=== PATIENT | male | born 1945 | race Caucasian/White ===

== ENCOUNTER 2017-11-09 12:51 | Inpatient (IN) | payer OTHER ==
[~2017-11-09] VITALS: Ht 177.8 cm; Wt 119.8 kg
[~2017-11-09 12:51] MED LIST: AMLO1CAP PO; AMLO2.5T2 PO; ATOR40TA68 PO; BENA40TA2 PO; FURO40TA5 PO; FURO80TA86 PO; GLIP10TA11 PO; GLIP10TA74 PO; HYDR-1115 PO; HYDR-4039 PO; LINA5TAB2 PO; LIP40 PO; METO-442 PO; TAMS0.4C96 PO
[2017-11-09 13:03] VITALS: BP_SYST 210
[2017-11-09] MEDS ORDERED: KETOROLAC TROMETHAMINE 30 MG VIAL IVP ONE (13:30)
[2017-11-09] MEDS ORDERED: DEXAMETHASONE SOD PHOSPHATE 10 MG/ML VIAL IVP ONE (13:45)
[2017-11-09] MEDS ORDERED: cloNIDine HCL 0.1 MG TABLET PO ONE ×2 (14:00→15:45)
[2017-11-09 14:21] LABS: BASOPHILS % (AUTO) 0.5 % (0.0-2.0); EOSINOPHILS # (AUTO) 0.3 K/uL (0.0-0.4); EOSINOPHILS % (AUTO) 3.4 % (0.0-4.0); HEMATOCRIT 43.3 % (36-54); HEMOGLOBIN 14.3 g/dL (14.0-18.0); LYMPHOCYTES # (AUTO) 1.4 K/uL (1.0-5.5); MEAN CORPUSCULAR HEMOGLOBIN 30 pg (27-31); MEAN CORPUSCULAR HGB CONC 33 % (32-36); MEAN CORPUSCULAR VOLUME 90 fL (79.0-98.0); MONOCYTES # (AUTO) 0.6 K/uL (0.0-1.0); MONOCYTES % (AUTO) 8.1 % (1.7-9.3); NEUTROPHILS # (AUTO) 5.7 K/uL (1.8-7.7); PLATELET COUNT (AUTO) 292 K/uL (130-430); RED BLOOD CELL COUNT(AUTO) 4.79 MIL/uL (4.2-6.2); RED CELL DISTRIBUTION WIDTH 14.8 % (9.0-15.0)
[2017-11-09] MEDS ORDERED: cloNIDine HCL 0.2 MG TABLET ONE (14:31)
[2017-11-09 14:35] LABS: ALANINE AMINOTRANSFERASE 16 U/L (12-78); ALBUMIN 2.8 g/dL (3.4-4.8); ANION GAP 9 (5-15); ASPARTATE AMINOTRANSFERASE 13 U/L (10-37); CALCIUM 9.2 mg/dL (8.4-11.0); CHLORIDE 108 mmol/L (98-107); CREATININE 2.04 mg/dL (0.55-1.30); GLUCOSE 207 mg/dL (70-99); LIPASE 335 U/L (73-393); POTASSIUM 3.9 mmol/L (3.5-5.1); SODIUM SERUM 141 mmol/L (136-145); TOTAL BILIRUBIN 0.4 mg/dL (0.0-1.0); UREA NITROGEN, BLOOD 46 mg/dL (8-21); URIC ACID 10.1 mg/dL (2.4-7.0)
[2017-11-09 14:43] LABS: BILIRUBIN,URINE NEGATIVE (NEGATIVE); BLOOD, URINE NEGATIVE (NEGATIVE); CLARITY/URINE CLEAR (CLEAR); COLOR,URINE YELLOW (YELLOW); GLUCOSE,URINE NEGATIVE (NEGATIVE); KETONES,URINE NEGATIVE (NEGATIVE); LEUKOCYTE ESTERASE ,URINE NEGATIVE (NEGATIVE); NITRITE, URINE NEGATIVE (NEGATIVE); PH,URINE 5.5 (5.0-8.0); PROTEIN URINE 3+ (NEGATIVE); UROBILINOGEN,URINE 0.2 (0.2-1.0)
[2017-11-09 15:21] LABS: BACTERIA,URINE RARE /HPF (None Seen); RBC,URINE 0-3 /HPF (0-3)
[2017-11-09] MEDS ORDERED: FUROSEMIDE 40 MG/4 ML VIAL IVP ONE (15:30)
[2017-11-09 15:39] LABS: ERYTHROCYTE SEDIMENTATION RATE 66 MM/HR (0-15)
[2017-11-09] MEDS ORDERED: CLON1PAT9 TD (15:39)
[2017-11-09] MEDS ORDERED: TOPXL100 PO (15:39)
[2017-11-09] MEDS ORDERED: VALS320T10 PO (15:39)
[2017-11-09] MEDS ORDERED: VITD2000 PO (15:39)
[2017-11-09] MEDS ORDERED: GABA-529 PO (15:39)
[2017-11-09] MEDS ORDERED: ALBU8.5H8 INH (15:58)
[2017-11-09] MEDS ORDERED: ASPI-1063 PO (15:58)
[2017-11-09] MEDS ORDERED: ACET325T53 PO (15:58)
[2017-11-09] MEDS ORDERED: GLUC100017 PO (15:58)
[2017-11-09 16:02] VITALS: BP_SYST 202
[2017-11-09 16:15] VITALS: BP_SYST 191
[2017-11-09 20:00] VITALS: BP_SYST 180
[2017-11-09] MEDS: amLODIPine BESYLATE 10 MG TABLET PO SCH (20:31)
[2017-11-09] MEDS: FUROSEMIDE 40 MG/4 ML VIAL IVP SCH (20:32)
[2017-11-09 22:30] VITALS: BP_SYST 187
[2017-11-09] MEDS ORDERED: ACETAMINOPHEN 325 MG TABLET PO SCH (23:30)
[2017-11-09] MEDS ORDERED: ALBUTEROL MDI INHALATION 8 GM INH INH PRN (23:30)
[2017-11-09] MEDS: hydrALAZINE HCL 20 MG/ML VIAL IVP PRN (23:37)
[2017-11-10] VITALS (8 sets, daily range): BP systolic 147–184
[2017-11-10] MEDS ORDERED: LEVOFLOXACIN 500 MG/D5W 100 ML IV SCH
[2017-11-10] MEDS ORDERED: LEVOFLOXACIN 250 MG/D5W 50 ML IV ONE (00:13)
[2017-11-10] MEDS ORDERED: LEVOFLOXACIN 500 MG/D5W 100 ML IV ONE (00:44)
[2017-11-10 07:02] LABS: BASOPHILS # (AUTO) 0.1 K/uL (0.0-0.2); BASOPHILS % (AUTO) 1.7 % (0.0-2.0); EOSINOPHILS % (AUTO) 0.1 % (0.0-4.0); HEMATOCRIT 41.3 % (36-54); HEMOGLOBIN 13.5 g/dL (14.0-18.0); LYMPHOCYTES # (AUTO) 0.6 K/uL (1.0-5.5); LYMPHOCYTES % (AUTO) 10.3 % (20.5-51.5); MEAN CORPUSCULAR HEMOGLOBIN 30 pg (27-31); MEAN CORPUSCULAR HGB CONC 33 % (32-36); MEAN CORPUSCULAR VOLUME 91 fL (79.0-98.0); MONOCYTES # (AUTO) 0.1 K/uL (0.0-1.0); MONOCYTES % (AUTO) 1.5 % (1.7-9.3); NEUTROPHILS # (AUTO) 5.2 K/uL (1.8-7.7); NEUTROPHILS % (AUTO) 86.4 % (40.0-70.0); PLATELET COUNT (AUTO) 287 K/uL (130-430); RED BLOOD CELL COUNT(AUTO) 4.54 MIL/uL (4.2-6.2); RED CELL DISTRIBUTION WIDTH 14.5 % (9.0-15.0)
[2017-11-10 07:08] LABS: ALANINE AMINOTRANSFERASE 13 U/L (12-78); ALBUMIN 2.3 g/dL (3.4-4.8); ANION GAP 9 (5-15); ASPARTATE AMINOTRANSFERASE 12 U/L (10-37); CALCIUM 8.9 mg/dL (8.4-11.0); CHLORIDE 105 mmol/L (98-107); CREATININE 2.19 mg/dL (0.55-1.30); GLUCOSE 282 mg/dL (70-99); PHOSPHORUS 3.4 mg/dL (2.7-4.5); POTASSIUM 4.3 mmol/L (3.5-5.1); SODIUM SERUM 137 mmol/L (136-145); TOTAL BILIRUBIN 0.5 mg/dL (0.0-1.0); UREA NITROGEN, BLOOD 53 mg/dL (8-21)
[2017-11-10] MEDS ORDERED: IPRATROPIUM BROM 0.5 MG/2.5 ML VIAL.NEB (ATROVENT) INH PRN (07:30)
[2017-11-10] MEDS ORDERED: ALBUTEROL SULFATE 0.083% 2.5 MG/3 ML VIAL.NEB INH PRN (07:30)
[2017-11-10] MEDS: FUROSEMIDE 40 MG/4 ML VIAL IVP SCH ×2 (08:26→20:24)
[2017-11-10] MEDS: CHOLECALCIFEROL (VITAMIN D3) 2,000 UNIT TABLET PO SCH (08:26)
[2017-11-10] MEDS: TAMSULOSIN HCL 0.4 MG CAP PO SCH (08:26)
[2017-11-10] MEDS: amLODIPine BESYLATE 10 MG TABLET PO SCH (08:27)
[2017-11-10] MEDS: VALSARTAN 160 MG TABLET (DIOVAN) PO SCH (08:28)
[2017-11-10] MEDS: hydrALAZINE HCL 25 MG TABLET PO SCH ×2 (08:28→20:25)
[2017-11-10] MEDS: METOPROLOL SUCCINATE 50 MG TAB.SR.24H (TOPROL XL) PO SCH (08:29)
[2017-11-10] MEDS: GABAPENTIN 100 MG CAPSULE PO SCH (08:29)
[2017-11-10] MEDS ORDERED: DEXTROSE 50% JECT 50 ML DISP.SYRIN IVP PRN (08:30)
[2017-11-10] MEDS: hydrALAZINE HCL 20 MG/ML VIAL IVP PRN (11:19)
[2017-11-10] MEDS: INSULIN REGULAR, HUMAN 100 UNITS/ML, 10 ML VIAL (novoLIN R) SUBCUT PRN ×3 (11:49→20:28)
[2017-11-10] MEDS: ASPIRIN 81 MG TABLET(ECOTRIN) PO SCH (20:25)
[2017-11-10] MEDS: ATORVASTATIN 20 MG TABLET PO SCH (20:25)
[2017-11-10] MEDS: LEVOFLOXACIN 250 MG/D5W 50 ML IV SCH (23:35)
[2017-11-11] VITALS (8 sets, daily range): BP systolic 118–191
[2017-11-11] MEDS: INSULIN REGULAR, HUMAN 100 UNITS/ML, 10 ML VIAL (novoLIN R) SUBCUT PRN ×4 (06:03→22:13)
[2017-11-11 06:57] LABS: BASOPHILS % (AUTO) 0.3 % (0.0-2.0); HEMOGLOBIN 12.8 g/dL (14.0-18.0); LYMPHOCYTES # (AUTO) 1.4 K/uL (1.0-5.5); LYMPHOCYTES % (AUTO) 13.1 % (20.5-51.5); MEAN CORPUSCULAR HEMOGLOBIN 29 pg (27-31); MEAN CORPUSCULAR HGB CONC 33 % (32-36); MEAN CORPUSCULAR VOLUME 90 fL (79.0-98.0); MONOCYTES # (AUTO) 0.6 K/uL (0.0-1.0); MONOCYTES % (AUTO) 5.5 % (1.7-9.3); NEUTROPHILS # (AUTO) 8.8 K/uL (1.8-7.7); NEUTROPHILS % (AUTO) 81.1 % (40.0-70.0); PLATELET COUNT (AUTO) 313 K/uL (130-430); RED BLOOD CELL COUNT(AUTO) 4.36 MIL/uL (4.2-6.2); RED CELL DISTRIBUTION WIDTH 14.3 % (9.0-15.0); WHITE BLOOD COUNT (AUTO) 10.8 K/uL (4.8-10.8)
[2017-11-11 07:05] LABS: ALANINE AMINOTRANSFERASE 13 U/L (12-78); ALBUMIN 2.4 g/dL (3.4-4.8); ANION GAP 9 (5-15); ASPARTATE AMINOTRANSFERASE 14 U/L (10-37); CALCIUM 8.6 mg/dL (8.4-11.0); CHLORIDE 103 mmol/L (98-107); CREATININE 2.53 mg/dL (0.55-1.30); GLUCOSE 173 mg/dL (70-99); POTASSIUM 4.1 mmol/L (3.5-5.1); SODIUM SERUM 137 mmol/L (136-145); TOTAL BILIRUBIN 0.3 mg/dL (0.0-1.0); UREA NITROGEN, BLOOD 71 mg/dL (8-21)
[2017-11-11] MEDS: hydrALAZINE HCL 25 MG TABLET PO SCH ×2 (08:54→22:05)
[2017-11-11] MEDS: TAMSULOSIN HCL 0.4 MG CAP PO SCH (08:54)
[2017-11-11] MEDS: GABAPENTIN 100 MG CAPSULE PO SCH (08:55)
[2017-11-11] MEDS: METOPROLOL SUCCINATE 50 MG TAB.SR.24H (TOPROL XL) PO SCH (08:55)
[2017-11-11] MEDS: amLODIPine BESYLATE 10 MG TABLET PO SCH (08:55)
[2017-11-11] MEDS: VALSARTAN 160 MG TABLET (DIOVAN) PO SCH (08:56)
[2017-11-11] MEDS: CHOLECALCIFEROL (VITAMIN D3) 2,000 UNIT TABLET PO SCH (08:56)
[2017-11-11] MEDS: FUROSEMIDE 40 MG/4 ML VIAL IVP SCH ×2 (08:57→22:06)
[2017-11-11] MEDS: hydrALAZINE HCL 20 MG/ML VIAL IVP PRN (11:50)
[2017-11-11] MEDS: ENALAPRILAT DIHYDRATE 1.25 MG/ML VIAL IVP PRN ×2 (13:37→23:46)
[2017-11-11] MEDS: ATORVASTATIN 20 MG TABLET PO SCH (22:04)
[2017-11-11] MEDS: ASPIRIN 81 MG TABLET(ECOTRIN) PO SCH (22:05)
[2017-11-12] VITALS (8 sets, daily range): BP systolic 141–189
[2017-11-12] MEDS: LEVOFLOXACIN 250 MG/D5W 50 ML IV SCH ×2 (00:48→23:37)
[2017-11-12 06:41] LABS: ANION GAP 9 (5-15); CALCIUM 8.7 mg/dL (8.4-11.0); CHLORIDE 105 mmol/L (98-107); CREATININE 2.42 mg/dL (0.55-1.30); GLUCOSE 124 mg/dL (70-99); POTASSIUM 3.9 mmol/L (3.5-5.1); SODIUM SERUM 139 mmol/L (136-145); UREA NITROGEN, BLOOD 73 mg/dL (8-21)
[2017-11-12] MEDS: GABAPENTIN 100 MG CAPSULE PO SCH (08:55)
[2017-11-12] MEDS: CHOLECALCIFEROL (VITAMIN D3) 2,000 UNIT TABLET PO SCH (08:56)
[2017-11-12] MEDS: TAMSULOSIN HCL 0.4 MG CAP PO SCH (08:56)
[2017-11-12] MEDS: amLODIPine BESYLATE 10 MG TABLET PO SCH (08:57)
[2017-11-12] MEDS: VALSARTAN 160 MG TABLET (DIOVAN) PO SCH (08:57)
[2017-11-12] MEDS: hydrALAZINE HCL 25 MG TABLET PO SCH ×2 (08:58→21:13)
[2017-11-12] MEDS: FUROSEMIDE 40 MG/4 ML VIAL IVP SCH ×2 (08:58→21:14)
[2017-11-12] MEDS: METOPROLOL SUCCINATE 50 MG TAB.SR.24H (TOPROL XL) PO SCH (08:59)
[2017-11-12] MEDS: ENALAPRILAT DIHYDRATE 1.25 MG/ML VIAL IVP PRN ×3 (10:17→22:52)
[2017-11-12] MEDS ORDERED: cloNIDine HCL 0.2 MG TABLET PO ONE (17:30)
[2017-11-12] MEDS ORDERED: FUROSEMIDE 20 MG/2 ML VIAL IVP ONE (19:45)
[2017-11-12] MEDS ORDERED: FUROSEMIDE 20 MG/2 ML VIAL ONE (20:03)
[2017-11-12] MEDS: ASPIRIN 81 MG TABLET(ECOTRIN) PO SCH (21:13)
[2017-11-12] MEDS: ATORVASTATIN 20 MG TABLET PO SCH (21:13)
[2017-11-12] MEDS: INSULIN REGULAR, HUMAN 100 UNITS/ML, 10 ML VIAL (novoLIN R) SUBCUT PRN (21:23)
[2017-11-13 00:09] VITALS: BP_SYST 180
[2017-11-13 04:41] VITALS: BP_SYST 145
[2017-11-13 07:47] LABS: ANION GAP 7 (5-15); CALCIUM 8.9 mg/dL (8.4-11.0); CHLORIDE 107 mmol/L (98-107); CREATININE 2.09 mg/dL (0.55-1.30); GLUCOSE 138 mg/dL (70-99); POTASSIUM 3.9 mmol/L (3.5-5.1); SODIUM SERUM 141 mmol/L (136-145); UREA NITROGEN, BLOOD 68 mg/dL (8-21)
[2017-11-13] MEDS: FUROSEMIDE 40 MG/4 ML VIAL IVP SCH (08:01)
[2017-11-13] MEDS: METOPROLOL SUCCINATE 50 MG TAB.SR.24H (TOPROL XL) PO SCH (08:02)
[2017-11-13] MEDS: VALSARTAN 160 MG TABLET (DIOVAN) PO SCH (08:03)
[2017-11-13] MEDS: amLODIPine BESYLATE 10 MG TABLET PO SCH (08:03)
[2017-11-13] MEDS: CHOLECALCIFEROL (VITAMIN D3) 2,000 UNIT TABLET PO SCH (08:03)
[2017-11-13 08:04] VITALS: BP_SYST 178
[2017-11-13] MEDS: GABAPENTIN 100 MG CAPSULE PO SCH (08:04)
[2017-11-13] MEDS: hydrALAZINE HCL 25 MG TABLET PO SCH (08:04)
[2017-11-13] MEDS: TAMSULOSIN HCL 0.4 MG CAP PO SCH (08:04)
[2017-11-13 09:30] VITALS: BP_SYST 165
[2017-11-13] MEDS: ENALAPRILAT DIHYDRATE 1.25 MG/ML VIAL IVP PRN (09:36)
[2017-11-13 10:17] VITALS: BP_SYST 165
[2017-11-13] MEDS ORDERED: LON10 PO (11:06)
[2017-11-13 11:23] VITALS: BP_SYST 160
[2017-11-13] MEDS ORDERED: MINOXIDIL 10 MG TABLET (LONITEN) PO ONE (11:30)
[2017-11-13] MEDS ORDERED: MINOXIDIL 10 MG TABLET (LONITEN) PO SCH (21:00)
[2017-11-18] MEDS ORDERED: cloNIDine HCL 0.1 MG/24 HR PATCH.TDWK TD SCH (19:00)
== END 2017-11-13 12:05 | disposition home or self-care (01) | DRG 291 ==
LOC: SED 12:51 → STU 15:15
PROVIDERS: ADMIT Internal Medicine Hospice and Palliative Medicine; ATTEND Internal Medicine Hospice and Palliative Medicine
DX: I13.0 Hypertensive heart and chronic kidney disease with heart failure and stage 1 through stage 4 chronic kidney disease, or unspecified chronic kidney disease (principal); I50.33 Acute on chronic diastolic (congestive) heart failure; N39.0 Urinary tract infection, site not specified; M10.9 Gout, unspecified; N18.3 Chronic kidney disease, stage 3 (moderate); E78.00 Pure hypercholesterolemia, unspecified; M25.531 Pain in right wrist; Z96.653 Presence of artificial knee joint, bilateral; E11.22 Type 2 diabetes mellitus with diabetic chronic kidney disease; E66.9 Obesity, unspecified; Z68.37 Body mass index [BMI] 37.0-37.9, adult; Z87.891 Personal history of nicotine dependence; Z79.899 Other long term (current) drug therapy; Z98.49 Cataract extraction status, unspecified eye
CPT/HCPCS: 36415; 71045; 71250-TC; 76770; 80048; 80053; 81000-TC; 82962; 83690-TC; 83735-TC; 83880; 84100-TC; 84550-TC; 85025; 85379; 85651-TC; 86431; 87086; 93306; 93970; 93971; 96374; 96375; 99285; J0360; J1100; J1815; J1885; J1940; J1956